=== PATIENT | male | born 1980 | race Caucasian/White ===

== ENCOUNTER 2016-06-30 13:49 | Emergency (ER) | payer OTHER ==
[~2016-06-30] VITALS: Ht 160 cm; Wt 72.6 kg
--- NOTE | 2016-06-30 13:49 | NUR ---
Patient was BIBA and taken to bed 03 via gurney per EMS.
--- NOTE | 2016-06-30 13:55 | NUR ---
PT BIBA FOR EVALUATION OF CHEST PAIN X1 HOUR. OPERATIONS ADVISOR STATES PT WAS AT HIS DAY PROGRAM AND BENT OVER [facility] IS CHEST AND STAFF CALLED 911. HX DOWN SYNDROME, HYPOTHYROIDISM. STATES HE HAD SOB 1 HOUR AGO. DENIES N/V. NO ACUTE DISTRESS NOTED AT THIS TIME.HOB ELEVATED, SAFETY PRECAUTION INSTITUTED. MADE AWARE OF PT'S CONDITION.
[2016-06-30 14:01] VITALS: BP 136/84
--- NOTE | 2016-06-30 14:08 | NUR ---
Dr. Gonsalves evaluating patient at bedside.
[2016-06-30] MEDS ORDERED: MORPHINE SULFATE 4 MG/ML SYR IVP ONE (14:15)
[2016-06-30] MEDS ORDERED: ACETAMINOPHEN EXTRA STRENGTH 500 MG TAB PO ONE (14:35)
--- NOTE | 2016-06-30 15:30 | NUR ---
Osvaldo urena in EDM - 06/30/16 at [address] [facility] PT'[address] IS FLUCTUATING FROM 48 TO 53.PARENTS AT BEDSIDE.NOTIFIED DR. EDMONDS.
--- NOTE | 2016-06-30 15:33 | NUR ---
PT'S IN IS FLUCTUATING FROM 48 TO 53.PARENTS AT BEDSIDE.NOTIFIED DR. EDMONDS. DR MONTIEL CONTINUE TO MONITOR PT.ALL MONITORS PLACED IN.NO ACUTE DISTRESS NOTED ATVTHIS TIME.
--- NOTE | 2016-06-30 15:41 | NUR ---
PT RESTING ON BED CONMFORTABLY. NO ACUTE DISTRESS NOTED AT THIS TIME. UT IS NOW AT 54.MOTHER SAID THAT HIS SON TOLD HER THAT HIS FEELING BETTER NOW.[facility] CONT[facility] PT.
--- NOTE | 2016-06-30 16:31 | NUR ---
DR EDMNODS AT BEDSIDE
--- NOTE | 2016-06-30 16:39 | NUR ---
PT LYONG ON BED COMFORTABLY. DENIES PAIN AND SOB AT THIS TIME. ALL MONITORS PLACED IN. SAFETY PRECAUTION PLACED IN. PARENTS AT BEDSIDE.WILL CONTINUE TO MONITOR PT.
[2016-06-30 17:00] VITALS: BP 133/75
--- NOTE | 2016-06-30 17:00 | NUR ---
Patient discharged with v/s stable. Written and verbal after care instructions given and explained. Patient alert, oriented and verbalized understanding of instructions. Ambulatory with steady gait. All questions addressed prior to discharge. ID band removed. Patient advised to follow up with PMD. Rx of ZANTAC given. Patient educated on indication of medication including possible reaction and side effects. Opportunity to ask questions provided and answered.
== END 2016-06-30 17:00 | disposition home or self-care (01) ==
LOC: MED 13:49
DX: K21.9 Gastro-esophageal reflux disease without esophagitis (principal); E03.9 Hypothyroidism, unspecified; Q90.9 Down syndrome, unspecified
CPT/HCPCS: 36415; 71010; 80053; 81001; 82948; 83690; 83880; 84484; 85025; 85610; 85730; 93005; 99285; Q0092